=== PATIENT | female | born 1935 | race Caucasian/White ===

== ENCOUNTER 2016-08-05 06:32 | Day surgery (SDC) | payer MEDICARE ==
[2016-08-05] VITALS (14 sets, daily range): BP systolic 136–206; BP diastolic 54–93
[~2016-08-05] VITALS: Ht 167.6 cm; Wt 82.6 kg
--- NOTE | 2016-08-05 06:53 | NUR ---
ARRIVAL PATIENT ARRIVED TO ED3 VIA W/C WITH FAMILY, C/O OF LEFT WRIST INJURY TODAY, PATIENT STATES SHE WAS ATTEMPTING TO PULL SHEET OFF THE BED WHEN SHE LOST HER BALANCE FALLING. DEFORMITY NOTED TO LEFT WRIST, PATIENT DENIES LOC, FAMILY BROUGHT TO ED FOR FURTHER EVAL BY EDP, NO DISTRESS NOTED, DENIES ANY OTHER INJURY.
[2016-08-05] MEDS ORDERED: ATEN50TA PO (07:03)
[2016-08-05] MEDS ORDERED: OMEG-12 PO (07:03)
[2016-08-05] MEDS ORDERED: VERA240C2 PO (07:03)
[2016-08-05] MEDS ORDERED: OMEP20TA PO (07:03)
[2016-08-05] MEDS ORDERED: GLUC1TAB53 PO (07:03)
[2016-08-05] MEDS ORDERED: ATOR10TA PO (07:03)
[2016-08-05] MEDS ORDERED: LEVO100T5 PO (07:03)
[2016-08-05] MEDS ORDERED: [UNRECOGNIZED DRUG - OTHER] PO (07:03)
[2016-08-05] MEDS ORDERED: MULT-72 PO (07:03)
[2016-08-05] MEDS ORDERED: LOSA100T6 PO (07:03)
[2016-08-05] MEDS ORDERED: HYDR25TA9 PO (07:03)
[2016-08-05] MEDS ORDERED: CHOL200042 PO (07:03)
[2016-08-05] MEDS ORDERED: LISI2.5T PO (07:03)
--- NOTE | 2016-08-05 07:05 | NUR ---
RAÚL PONCE FROM XRAY HERE
--- NOTE | 2016-08-05 07:06 | ER.PDOC ---
General Chief Complaint: Trauma Stated Complaint: FALL,LEFT WRIST POSSIBLY BROKEN Time seen by MD: 07:06 Source: patient, family History of Present Illness Initial Comments p fell at home and injured her left wrist and also right hand Occurred: this morning Allergies: Coded Allergies: No Known Allergies (Unverified , 08/05/16) Home Meds Reported Medications Multivitamin (One Daily)1 Each Tablet1 Each PO DAILY 08/05/16 Cholecalciferol (Vitamin D3) (D3-2000)2,000 Unit Capsule5,000 Unit PO DAILY 08/05/16 [place]-3 Fatty Acids/Fish Oil ([place]-3 1,000 Mg Softgel)1 Each Capsule1 Each PO DAILY 08/05/16 Glucosamine/D3/Boswellia Nancy (Osteo Bi-Flex Caplet)1 Each Tablet1 Each PO DAILY 08/05/16 Ca/D3/Mag#11/Zinc/Scale Model Maker/Didier/Bor (Calcium 600+D3 Plus Caplet)1 Each Tablet1 Each PO DAILY 08/05/16 Omeprazole 20 Mg Tablet.dr1 Tab PO DAILY #90 TAB Ref 3 08/05/16 Lisinopril 2.5 Mg Tablet1 Tab PO DAILY #90 TAB Ref 3 08/05/16 Hydrochlorothiazide 25 Mg Tablet1 Tab PO -W- PRN BLOOD PRESSURE #90 TAB Ref 3 08/05/16 Levothyroxine Sodium 100 Mcg Tablet1 Tab PO DAILY #90 TAB Ref 3 08/05/16 Atenolol (Tenormin)50 Mg Tablet1 Tab PO BID #90 TAB Ref 3 08/05/16 Verapamil Hcl (Verapamil Er)240 Mg Cap24h.pel1 Cap PO BID #90 CAP Ref 3 08/05/16 Atorvastatin 10MG (Lipitor 10MG)10 Mg Tablet1 Tab PO DAILY #90 TAB Ref 3 08/05/16 Losartan Potassium 100 Mg Tablet1 Tab PO DAILY #90 TAB Ref 3 08/05/16 Past Medical History Medical History: GERD, high cholesterol, hypertension, thyroid disease Surgical History: hysterectomy LMP (females 10-50): hysterectomy Social History Smoking: non-smoker Alcohol Use: none Drug Use: none Review of Systems Constitutional: see HPI Musculoskeletal: see HPI All Other Systems: Reviewed and Negative Physical Exam General Appearance: Alert Wrist: tenderness, swelling, deformity (left wrist deformity with punctate wound at volar aspect of left wrist ) Neuro: sensation nml, motor nml Vascular: no vascular compromise Tendons: tendon function nml Forearm/Elbow/Arm: uninjured above wrist Skin: warm/dry Head/ENT: nml inspection Neck/Back: nml inspection Resp/CVS: no resp distress, lungs clear Results/Orders Results/Orders Laboratory Tests Test 08/05/16 07:37 White Blood Count 8.110^3/uL (4.5-11.0) Red Blood Count 4.0510^6/uL (4.00-5.20) Hemoglobin 13.1g/dL (12.0-15.0) Hematocrit 38.7% (36.0-46.0) Mean Corpuscular Volume 95.6fL (78-100) Mean Corpuscular Hemoglobin 32.3pg (26-34) Mean Corpuscular Hemoglobin Concent 33.9g/dL (33-37) Red Cell Distribution Width 14.1% (11.5-14.5) Platelet Count 77718^3/uL (150-400) Mean Platelet Volume 12.3fL (7.8-11.0) Neutrophils (%) (Auto) 73.0% (41.0-85.0) Lymphocytes (%) (Auto) 15.3% (24.0-44.0) Monocytes (%) (Auto) 10.0% (5.0-12.0) Neutrophils # (Auto) 5.910^3/uL (1.8-7.7) Lymphocytes # (Auto) 1.210^3/uL (1.0-4.8) Monocytes # (Auto) 0.810^3/uL (0.3-0.8) Absolute Immature Granulocyte (auto 0.0310^3 u/L (0-2) Eosinophils % 0.9% (0.0-5.0) Basophils % 0.4% (0.0-0.2) Basophils # 0.010^3/uL (0.0-0.1) Eosinophil Count 0.110^3/uL (0.0-0.2) Prothrombin Time 11.2SEC (9.8-11.9) Prothromb Time International Ratio 1.1 Sodium Level 143mmol/L (132-145) Potassium Level 3.1mmol/L (3.6-5.2) Chloride Level 104.0mmol/L (96-109) Carbon Dioxide Level 31.7mmol/L (20.0-32) Anion Gap 10.4 Blood Urea Nitrogen 10mg/dL (7-18) Creatinine 0.68mg/dL (0.59-1.40) Estimat Glomerular Filtration Rate BUN/Creatinine Ratio 14.0 Glucose Level 121mg/dL (70-110) Calculated Osmolality 295.5 Calcium Level 9.1mg/dL (8.4-10.5) Total Bilirubin 0.7mg/dL (0.2-1.0) Aspartate Amino Transf (AST/SGOT) 20U/L (0-35) Alanine Aminotransferase (ALT/SGPT) 26U/L (12-78) Alkaline Phosphatase 79U/L (50-136) Total Protein 6.1g/dL (6.4-8.2) Albumin 2.9g/dL (3.4-5.0) Globulin 3.2 Percent Immature Gran (Cell Imm) 0.40% (0.00-0.50) Administered Medications Medications (Trade) Dose Ordered Sig/Wendy Route PRN Reason Start Time Stop Time Status Last Admin Dose Admin Fentanyl Citrate (Sublimaze) 50 mcg STAT STAT IV 08/05/16 07:18 08/05/16 07:21 DC 08/05/16 07:36 Cefazolin Sodium 1 gm 1 gm STAT STAT IV 08/05/16 07:18 08/05/16 07:21 DC 08/05/16 07:32 Lactated Ringer's (Lactated Ringers) 200 ml @ 200 mls/hr Q1H STAT IV 08/05/16 07:23 08/05/16 08:22 DC 08/05/16 07:32 Ondansetron HCl (Zofran) 4 mg STAT STAT IV 08/05/16 07:33 08/05/16 07:34 DC 08/05/16 07:[address] Sarmiento was consulted and saw pt at ED and decided to admit her to day surgery Departure Time of Disposition: 09:15 Disposition: 09 ADMITTED INPATIENT Impression: Primary Impression: Fracture of distal radius and ulna Qualified Code: S52.502B - Unspecified fracture of the lower end of left radius, initial encounter for open fracture type I or II Condition: Stable Referrals: PCP,UNKNOWN (PCP) PRIMARY CARE PROVIDER GUICHO NICHOLS MD Aug 05, 2016 07:06
[2016-08-05] MEDS ORDERED: ANCEF IV STA (07:18)
[2016-08-05] MEDS ORDERED: TETANUS DIPHTHERIA TOXOIDS IM STA (07:18)
[2016-08-05] MEDS ORDERED: SUBLIMAZE IV STA (07:18)
--- NOTE | 2016-08-05 07:18 | NUR ---
MD DR NICHOLS TALKING WITH DR BURTON
[2016-08-05] MEDS ORDERED: LACTATED RINGERS 1,000 ML ONE ×3 (07:19→10:31)
[2016-08-05] MEDS ORDERED: NS 100ML 100 ML IV ONE ×3 (07:19→10:41)
[2016-08-05] MEDS ORDERED: ANCEF ONE ×3 (07:19→10:41)
[2016-08-05] MEDS ORDERED: SUBLIMAZE ONE ×3 (07:20→10:34)
[2016-08-05] MEDS ORDERED: ZOFRAN ONE ×3 (07:20→10:32)
[2016-08-05] MEDS ORDERED: LACTATED RINGERS 200 ML IV STA (07:23)
[2016-08-05] MEDS ORDERED: ZOFRAN IV STA (07:33)
[2016-08-05] MEDS ORDERED: ADACEL VIAL IM ONE ×2 (07:42)
[2016-08-05 07:43] LABS: BASOPHIL % 0.4 % (0.0-0.2); EOSINOPHIL # 0.1 10^3/uL (0.0-0.2); EOSINOPHIL % 0.9 % (0.0-5.0); HEMATOCRIT 38.7 % (36.0-46.0); HEMOGLOBIN 13.1 g/dL (12.0-15.0); LYMPHOCYTES # 1.2 10^3/uL (1.0-4.8); LYMPHOCYTES % 15.3 % (24.0-44.0); MEAN CELL HGB 32.3 pg (26-34); MEAN CELL HGB CONCENTRATION 33.9 g/dL (33-37); MEAN CORP VOLUME 95.6 fL (78-100); MEAN PLATELET VOLUME 12.3 fL (7.8-11.0); MONOCYTES # 0.8 10^3/uL (0.3-0.8); NEUTROPHIL # 5.9 10^3/uL (1.8-7.7); RED BLOOD CELL 4.05 10^6/uL (4.00-5.20); RED CELL DISTRIBUTION WIDTH 14.1 % (11.5-14.5); WHITE BLOOD CELL 8.1 10^3/uL (4.5-11.0)
[2016-08-05] MEDS ORDERED: BOOSTRIX VACCINE SYRINGE IM STA (07:44)
[2016-08-05 07:56] LABS: INR 1.1; PROTHROMBIN PROTIME 11.2 SEC (9.8-11.9)
[2016-08-05 07:58] LABS: ALANINE AMINOTRANSFERASE 26 U/L (12-78); ALBUMIN 2.9 g/dL (3.4-5.0); ALKALINE PHOSPHATASE 79 U/L (50-136); ANION GAP 10.4; ASPARTATE AMINO TRANSFERASE 20 U/L (0-35); CALCIUM 9.1 mg/dL (8.4-10.5); CARBON DIOXIDE 31.7 mmol/L (20.0-32); CREATININE SERUM 0.68 mg/dL (0.59-1.40); GLUCOSE 121 mg/dL (70-110)
--- NOTE | 2016-08-05 08:05 | NUR ---
status PATIENT RESTING IN SUPINE POSITION, RESP EVEN AND NONLABORED, DENIES PAIN LONG NO MOVEMENT, DENIES NEEDS, AWAITING DOCTOR BURTON ARRIVAL TO ED.
--- NOTE | 2016-08-05 08:07 | DIREP ---
PROCEDURE:XRAY WRIST MIN 3VW-LT COMPARISON:None. INDICATIONS:FALL DEFORMITY OF THE LEFT WRIST. FINDINGS: BONES:Comminuted fractures of the distal radial and ulnar metadiaphyses. Additional fracture of the distal ulnar styloid process. There is mild impaction of the distal radial fracture with mild posterior and radial displacement. Approximate 4 mm radial displacement of the dominant distal ulnar fracture fragment. No definite intra-articular extension of the radial fracture. JOINTS:Carpal rows appear relatively preserved; however, there is apparent diffuse chondrocalcinosis. Advanced degenerative changes at the first carpometacarpal articulation. Degenerative changes to a lesser degree at the triscaphe articulation. SOFT TISSUES:Soft tissue swelling about the wrist. CONCLUSION: 1. Comminuted fractures of the distal radial and ulnar metadiaphyses with mild impaction and displacement as above. No definite intra-articular extension. 2. Advanced degenerative changes at the base of the thumb. 3. 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 Dictated by: Artis Conway M.D. On 08/05/2016 at 08:00 AM
--- NOTE | 2016-08-05 08:15 | DIREP ---
PROCEDURE:XRAY HAND MIN 3 VW-RT COMPARISON:None. INDICATIONS:injury FINDINGS: BONES:Subtle nondisplaced transverse fracture through the proximal aspect of the first proximal phalanx. No intra-articular extension. Contour irregularity involving the proximal aspect of the fifth metacarpal may reflect sequela of remote injury. JOINTS:Advanced degenerative changes at the first carpometacarpal articulation. Degenerative changes to a slightly lesser degree at the triscaphe articulation. Advanced osteoarthrosis is also noted involving the distal interphalangeal joints. SOFT TISSUES:No suspicious abnormality. OTHER:No additional findings. CONCLUSION: 1. Nondisplaced transverse fracture through the proximal aspect of the first proximal phalanx. No intra-articular extension. Suspect sequela of remote injury to the fifth metacarpal. 2. Advanced osteoarthrosis as above. Dictated by: Artis Conway M.D. On 08/05/2016 at 08:05 AM
--- NOTE | 2016-08-05 08:30 | NUR ---
MICHEAL DOCTOR MICHEAL TO THE ED TO SEE PATIENT.
--- NOTE | 2016-08-05 09:02 | NUR ---
ANCEF ANCEF ONE GRAM IN AT THIS TIME.
--- NOTE | 2016-08-05 09:04 | NUR ---
ANETHESIA ANETHESIA HERE TO SEE PATIENT.
--- NOTE | 2016-08-05 09:48 | ER.CONS ---
DATE OF SERVICE: 08/05/2016 CHIEF COMPLAINT: Painful left wrist as well as a painful right thumb. HISTORY OF PRESENT ILLNESS: The patient is an 81-year-old female. She lives at home independently, fell this morning while making her bed and injured her left wrist as well as her right thumb. She was seen in the Emergency Room. Her x-rays and exam showed that she had a displaced left distal radius and ulnar fracture as well as a minimally displaced fracture of the right thumb. PHYSICAL EXAMINATION: The patient's exam today shows that she has a small puncture wound on the volar aspect of her left wrist. The patient has obvious deformity about the left wrist and decreased range of motion secondary to pain. The elbow and shoulder are nontender. She has a good radial pulse and normal sensation about the fingers. IMAGING: Her x-rays show that she has a comminuted dorsally displaced left distal radius and ulnar fracture. On the lateral view, there is a bone fragment vertically that appears to be responsible for the open portion of the wound. The patient's right thumb has diffuse swelling and bruising extending from the proximal phalanx up to the IP joint. She is able to flex and extend the thumb with what she describes as minimal pain. She has some mild tenderness about the base of the proximal phalanx. 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 The x-rays of the right thumb shows that she has a minimally displaced fracture of the proximal phalanx. ASSESSMENT: 1. Grade 1 open left distal radius and ulnar fracture. 2. Minimally displaced closed fracture of the right thumb proximal phalanx. PLAN: The patient was given some IV Ancef in the Emergency Room. The patient's wounds have been dressed. She will be taken to the operating room for open reduction and internal fixation as well as I and D of the wound. The patient's right thumb injury will be treated . Jose Sarmiento MD DR: FLORINDA/nelson JOB# [id number]
[2016-08-05] MEDS ORDERED: DECADRON ONE (10:31)
[2016-08-05] MEDS ORDERED: ZEMURON IV ONE (10:32)
[2016-08-05] MEDS ORDERED: NEOSTIGMINE ONE (10:32)
[2016-08-05] MEDS ORDERED: ROBINUL ONE (10:32)
[2016-08-05] MEDS ORDERED: LIDOCAINE 2% VIAL ONE (10:33)
[2016-08-05] MEDS ORDERED: QUELICIN ONE (10:33)
[2016-08-05] MEDS ORDERED: DIPRIVAN IV ONE (10:33)
[2016-08-05] MEDS ORDERED: SODIUM CHLORIDE IR ONE (11:42)
[2016-08-05] MEDS ORDERED: ACET-687 PO (13:21)
[2016-08-05] MEDS ORDERED: CEPH-350 PO (13:22)
[2016-08-05] MEDS ORDERED: LACTATED RINGERS 1,000 ML IV ONE (13:30)
[2016-08-05] MEDS ORDERED: ZOFRAN IV PRN (13:30)
--- NOTE | 2016-08-05 13:35 | OPH ---
DATE OF SURGERY: 08/05/2016 PREOPERATIVE DIAGNOSIS: Grade 1 open left distal radius and ulnar fracture. POSTOPERATIVE DIAGNOSIS: Grade 1 open left distal radius and ulnar fracture. OPERATIVE PROCEDURE: 1. I and D of left wrist wound. 2. Open reduction and internal fixation left distal radius using a Synthes 3-hole volar locking plate. SURGEON: Jose Sarmiento MD ANESTHESIA: General endotracheal. TOURNIQUET TIME: 88 minutes at 300 mmHg. DRAINS: None. BLOOD LOSS: 10 mL. DESCRIPTION OF INDICATIONS: The patient is an 81-year-old female. She fell at home today and suffered a grade 1 open left distal radius and ulnar fracture. The x-rays showed she had a comminuted dorsally displaced fracture of the left distal radius and ulna. The patient had a small puncture wound about the volar radial aspect of the wrist. On the x-rays, she also had a piece of bone that was vertically oriented on the volar aspect. DESCRIPTION OF PROCEDURE: The patient was taken to the operating room for I and D of her wounds as well as ORIF of the radius. This patient was placed in the operating table in the supine position. A general endotracheal anesthetic was induced without difficulty. Well padded tourniquet was placed around the left upper extremity. Left upper extremity was then sterilely prepped and draped. The arm was exsanguinated with an Esmarch and the tourniquet was inflated to 300 mmHg with a good bounce. The patient was given 2 grams of Ancef prior to induction of anesthesia. The patient had the incision made about the volar radial aspect of the wrist. The incision was taken through the skin and the subcutaneous tissues. The patient had the flexor carpi radialis tendon sheath opened and then the tendon was reflected towards the ulnar side. The patient then had the pronator quadratus released off of the distal radius and again reflected ulnarly. The wounds were copiously irrigated with a liter of saline. The patient had two small comminuted portions of the volar aspect of the fracture removed. Once portion of the comminuted bone was felt to be the bone fragment that penetrated through the skin, so that was removed and discarded. After the wound was copiously irrigated, then the patient had a ____ hole Synthes volar-locking plate placed about volar aspect of the wrist. We placed a single 2.7 cortical screw in the oblong hole. The size of the plate as well as the positioning was felt to be satisfactory. The patient then had the distal portion of the plate stabilized with three 2.4 locking screws. The positioning of the screws and the reduction of the fracture was felt to be satisfactory. We ended up placing two locking screws proximally that were 2.4 to complete the stabilization. The final AP and lateral x-ray showed satisfactory hardware position and satisfactory reduction of the fracture. The fracture was ____ severely comminuted, especially on the volar surface. There was felt to be a significant defect volarly that we bone grafted with some DBX bone chips and putty. A portion of the comminuted bone was then placed back in the volar hole with the plate. The patient's ulna was felt to be satisfactory ____ we reduced and I did not think I can improve the ulna ____ type of fixation. Therefore, we did not address the ulnar fracture surgically. The wounds were irrigated and then the subcutaneous was closed with 2-0 Monocryl in an interrupted manner. The skin was closed with 3-0 Ethilon. A compressive dressing and a volar splint was applied. The patient's tourniquet was released. She was extubated in the operating room and sent to recovery in stable condition. Jose Sarmiento MD DR: FLORINDA/nelson JOB# [id number]
[2016-08-05] MEDS ORDERED: NORCO 7.5MG PO ONE (13:37)
[2016-08-05] MEDS ORDERED: NORCO 7.5MG PO PRN (14:00)
--- NOTE | 2016-08-06 02:25 | PRM.ACF1 ---
Admission Criteria Forms MUSCULOSKELETAL DISEASE GRG Clinical Indications for Admission to Inpatient Care (Place 'X' for any and all applicable criteria): Hospital admission is needed for appropriate care of the patient because of ANY ONE of the following: [X ]I. Fracture, dislocation, or other musculoskeletal injury requiring inpatient care(medical) as indicated by ANY ONE of the following(4)(5)(6)(7) [ ]a) Vertebral fracture requiring observation for instability or neurologic compromise (8) [ ]b) Compartment syndrome (proven or cannot be ruled out during observation level of care) (9) [ ]c) Limb-threatening injury [ ]d) Major injury requiring inpatient stabilization such as traction initiation or external fixation before internal fixation or closure of complex or open fracture [X ]e) Major injury requiring inpatient treatment after emergency or observation level care (as appropriate) [ ]f) Severe pain requiring acute inpatient management [ ]II. Newly diagnosed or suspected bone, joint, or orthopedic device infection (e.g., osteomyelitis, septic arthritis) needing ANY ONE of the following(1)(2)(3) [ ]a) IV antibiotics that cannot be initiated in other than inpatient setting (e.g., patient too unstable or home infusion not available) [ ]b) Device removal or replacement [ ]c) Bone or soft tissue debridement [ ]d) Joint drainage (drain placement or repetitive aspirations) [ ]III. Severe rheumatologic disease (e.g., systemic lupus erythematosus, rheumatoid arthritis) with complications or comorbidities (Also use Optimal Recovery Care Criteria or General Recovery Criteria as appropriate on the basis of predominant condition), including ANY ONE of the following(10 )(11)(12)(13) [ ]a) Severe infection (e.g., SALES EXEC infection, sepsis) (14) [ ]b) Respiratory complications, including ANY ONE of the following: [ ]i) Pleural effusion with respiratory compromise [ ]ii) Pulmonary hypertension with congestive failure [ ]iii) Respiratory failure [ ]iv) Pulmonary hemorrhage (15) [ ]c) Hematologic disease, including ANY ONE of the following: [ ]i) Coagulopathy with bleeding [ ]ii) Thrombosis with hypercoagulable state [ ]iii) Thrombotic thrombocytopenic purpura [ ]d) Cerebritis with seizures, psychosis, or other severe abnormalities [ ]e) Vertebral destruction with monitoring needed for cervical myelopathy& possible respiratory compromise [ ]f) Exacerbation that requires inpatient treatment (e.g., intravenous immunosuppression) (16) [ ]g) Acute renal failure [ ]IV. Severe vasculitis with complications or comorbidities (Also use Optimal Recovery Care Criteria or General Recovery Criteria as appropriate on the basis of predominant condition), including ANY ONE of the following(11)(12)(17)(18)(19)(20) [ ]a) SALES EXEC vasculitis with seizures, psychosis, or other severe abnormalities (22) [ ]b) Renal failure (16) [ ]c) Pulmonary hemorrhage (15) [ ]d) Cerebral infarction [ ]e) Gastrointestinal ischemia [ ]f) Gangrene or threatened amputation [ ]g) Exacerbation that requires inpatient treatment (e.g., intravenous immunosuppression) (19)(21) [ ]V. Severe myopathy as indicated by ANY ONE of the following (28)(29) [ ]a) New onset of airway compromise or inability to swallow [ ]b) Respiratory deterioration with observation needed for impending respiratory failure [ ]c) Exacerbation that requires inpatient treatment (e.g., intravenous immunosuppression) [ ]. Severe gout (crystal arthropathy) as indicated by ANY ONE of the following (23)(24) [ ]a) Severe pain requiring acute inpatient management [ ]b) Exacerbation that requires inpatient treatment (e.g., intravenous treatment) [ ]VII.Rhabdomyolysis and ANY ONE of the following (25)(26)(27) [ ]a) Acute renal failure [ ]b) Need for intravenous hydration after emergency or observation level care (as appropriate) [ ]c) Inability to maintain oral hydration [ ]d) Change in mental status [ ]e) Electrolyte abnormality that remains after emergency or observation level care (as appropriate) [ ]VIII Post amputation complication, as indicated by ANY ONE of the following [ ]a) Infection [ ]b) Dehiscence [ ]c) Myodesis failure [ ]IX. Severe pain requiring acute inpatient management as indicated by ALL of the following (30)(31)(32) [ ]a) Continuous or frequent (e.g., every 2 to 4 hrs) parenteral analgesics required [A] [ ]b) Rapid improvement expected from treatment or acute intervention ( e.g., surgery, anesthesia procedure[B] [ ]X. Musculoskeletal Disease and ALL of the following: [ ]a) Symptom or finding for which emergency and observation care have failed or are not considered appropriate (Use General Criteria: Observation Care as appropriate) [ ]b) Presence of ANY ONE of the following [ ]i) A General Admission Criteria [ ]ii) A Pediatric General Admission Criteria The original [facility] content created by [employer] has been revised. The portions of the content which have been revised are identified through the use of italic text or in bold, and [facility] has neither reviewed nor approved the modified material. All other unmodified content is copyright [facility]. Please see references footnoted in the original [facility] edition 2016 Is [facility]/[place] added/comple: YES JOHNNY BUTLER [facility] Aug 06, 2016 02:24
== END 2016-08-05 14:13 | disposition home or self-care (01) ==
LOC: ER 06:32 → SDC 09:00 → ER 09:17 → SDC 09:17
PROVIDERS: ATTEND Orthopaedic Surgery
DX: S52.602B Unspecified fracture of lower end of left ulna, initial encounter for open fracture type I or II (principal); W19.XXXA Unspecified fall, initial encounter; Y93.89 Activity, other specified; Y92.098 Other place in other non-institutional residence as the place of occurrence of the external cause; Y99.8 Other external cause status
CPT/HCPCS: 25608; 36415; 73110; 73130; 76000; 80053; 85025; 85610; 96361; 96374; 96375; 99285; J0690; J1100; J2001; J2405; J2710; J3010; J3490 ×2; J7030; J7120; Z7610; 90715; C1713; J0330